=== PATIENT | female | born 1995 | race Caucasian/White ===

== ENCOUNTER → 2020-08-22 | Outpatient (CLI) | payer SELFPAY ==
[2020-08-22 19:10] LABS: Basophils # (A) 0.03 X 10*3/uL (0.00-0.10); Basophils % (A) 0.4 %; Eosinophils # (A) 0.14 X 10*3/uL (0.04-0.35); HCT 40.7 % (37.2-46.3); HGB 13.6 g/dL (12.0-15.0); Lymphocytes # (A) 2.35 X 10*3/uL (0.90-5.00); Lymphocytes % (A) 33.7 %; MCH 30.8 pg (27.0-32.0); MCHC 33.4 g/dL (32.0-37.0); MCV 92.3 fL (80.0-97.0); Mean Platelet Volume 13.3 fL (9.5-12.2); Monocytes # (A) 0.33 X 10*3/uL (0.20-1.00); Monocytes % (A) 4.7 %; Neutrophils # (A) 4.11 X 10*3/uL (1.80-7.70); Neutrophils % (A) 59.1 %; Platelet Count 208 X 10*3/uL (140-440); RBC 4.41 X 10*6/uL (4.10-5.20); RDW 11.5 % (11.5-14.5); WBC 6.97 X 10*3/uL (4.50-10.00)
[2020-08-22 20:57] LABS: Gliadin AB IgA, Deaminated NEGATIVE (NEGATIVE); Gliadin AB IgA, Unit 2.4 U/mL; Gliadin AB IgG, Deaminated NEGATIVE (NEGATIVE)
[2020-08-23 01:10] LABS: T4, Free (Free Thyroxine) 1.1 ng/dL (0.80-1.80)
[2020-08-23 01:11] LABS: African American GFR (CKD) 140.6 (60.0-200.0); Albumin 5.1 g/dL (3.80-4.90); Albumin/Globulin Ratio 1.65 (1.60-3.17); Anion Gap 11.5 mmol/L (4.00-12.00); Calcium 9.5 mg/dL (8.7-10.3); Carbon Dioxide 22.5 mmol/L (21.6-31.8); Chol/HDL Ratio 2.95; Globulin 3.1 g/dL (1.6-3.3); LDL Cholesterol,Calculated 141.4 mg/dL (0.0-131.0); Non-African American GFR(CKD) 121.3 (60.0-200.0); Potassium 4.1 mmol/L (3.5-5.5); Total Bilirubin 0.5 mg/dL (0.2-1.2); Total Protein 8.2 g/dL (6.2-8.2); VLDL Calculation 18.6 mg/dL (5.00-40.00)
== END | disposition home or self-care (01) ==
LOC: LABWHC1 12:22
PROVIDERS: ATTEND Nurse Practitioner Family
DX: Z00.01 Encounter for general adult medical examination with abnormal findings (principal); R10.9 Unspecified abdominal pain
CPT/HCPCS: 36415; 80053; 80061; 82150; 83516; 83690; 84439; 84443; 85025